=== PATIENT | female | born 1975 | race Asian ===

== ENCOUNTER 2019-08-03 18:23 | Emergency (ER) | payer BC ==
[~2019-08-03] VITALS: Ht 160 cm; Wt 54.5 kg
[2019-08-03 18:25] VITALS: BP 137/87
[2019-08-03] MEDS ORDERED: ACETAMINOPHEN 500 MG TABLET PO ONE (18:45)
== END 2019-08-03 21:02 | disposition home or self-care (01) ==
LOC: EMS 18:23
DX: S20.211A Contusion of right front wall of thorax, initial encounter (principal); F41.9 Anxiety disorder, unspecified; V49.9XXA Car occupant (driver) (passenger) injured in unspecified traffic accident, initial encounter; Y93.89 Activity, other specified; Y92.89 Other specified places as the place of occurrence of the external cause; Y99.8 Other external cause status